=== PATIENT | male | born 2000 | race Hispanic/Latino ===

== ENCOUNTER → 2023-07-26 | Emergency (ER) | payer OTHER ==
[~2023-07-26] MED LIST: AZITHROMYCIN 250 MG TAB ONE; CEFTRIAXONE 1000 MG/VIAL ONE; DOXYCYCLINE 100 MG CAP PO ONE; KETOROLAC 30 MG/ML INJ ONE; NA CHLORIDE 0.9% 500 ML ONE; ONDANSETRON 4 MG/2 ML VIAL ONE
--- NOTE | 2023-07-26 10:23 | RAD REPORT ---
EXAM DESCRIPTION: US - Extremity Nonvascular Limited - 07/26/2023 9:55 am CLINICAL HISTORY: Pain;Swelling COMPARISON: No comparisons FINDINGS: Focused ultrasound of the left inguinal region. An enlarged lymph node is present measurin g 1.3 cm in short axis. This does have a fatty hilum. IMPRESSION: Enlarged lymph node at the patient's left groin. This is probably reactive. Suggest clin ical follow-up.
[2023-07-26 10:25] LABS: Absolute Lymphocytes (CBC) 1.3 K/uL (0.7-4.9); Hematocrit 44.5 % (39.6-49.0); Lymphocytes % 19.9 % (15.3-44.8); MCV 91.2 fL (80-100); MPV 9.5 fL (7.6-11.3); Platelets 168 thou/uL (152-406); RBC Red Blood Cell Count 4.88 M/uL (4.33-5.43)
[2023-07-26 10:44] LABS: Albumin 3.8 g/dL (3.4-5.0); Bilirubin Total 0.2 mg/dL (0.2-1.0); Potassium 3.9 mEq/L (3.5-5.1); Protein, Total 7.7 g/dL (6.4-8.2)
--- NOTE | 2023-07-26 11:14 | ER ---
Nurse's Notes [facility] Name: Toy Long Age: 23 yrs Sex: Male : 2000 Arrival Date: 07/26/2023 Time: 08:41 Bed 17 [facility] MD: Diagnosis: Nonspecific lymphadenitis, unspecified-suggestive of reactive Presentation: 07/26 08:59 Chief complaint: Left groin pain that radiates to abdomen after lifting weights 3 days hb ago. Coronavirus screen: At this time, the client does not indicate any symptoms associated with coronavirus-19. Ebola Screen: No symptoms or risks identified at this time. Initial Sepsis Screen: Does the patient meet any 2 criteria? No. Patient's initial sepsis screen is negative. Does the patient have a suspected source of infection? No. Patient's initial sepsis screen is negative. Risk Assessment: Do you want to hurt yourself or someone else? Patient reports no desire to harm self or others. Onset of symptoms was July 23, 2023. 08:59 Method Of Arrival: Ambulatory hb 08:59 Acuity: SLAVA 4 hb Triage Assessment: 10:00 General: Appears in no apparent distress. Behavior is calm, cooperative, appropriate bp for age. Pain: Complains of pain in left inner thigh and left upper thigh. Historical: - Allergies: 09: No Known Allergies; hb - Home Meds: 09: None [Active]; hb - PMHx: 09: None; hb - PSHx: 09: None; hb - Immunization history:: Adult Immunizations up to date. - Social history:: Smoking status: Patient denies any tobacco usage or history of. - Family history:: not pertinent. Screenin: [facility] ED Fall Risk Assessment (Adult) Score/Fall Risk Level 0 - 2 = Low Risk hb Oriented to surroundings, Maintained a safe environment, Educated pt \T\ family on fall prevention, incl call for assistance when getting out of bed. Abuse screen: Denies threats or abuse. Denies injuries from another. Nutritional screening: No deficits noted. Tuberculosis screening: . Assessment: 09:01 General: Appears in no apparent distress. Behavior is calm, cooperative. Pain: Pain hb currently is 4 out of 10 on a pain scale. Neuro: Level of Consciousness is awake, alert, obeys commands, Oriented to person, place, time, situation. Cardiovascular: Patient's skin is warm and dry. Respiratory: Respiratory effort is even, unlabored, Respiratory pattern is regular, symmetrical. GI: No signs and/or symptoms were reported involving the gastrointestinal system. : No signs and/or symptoms were reported regarding the genitourinary system. EENT: No signs and/or symptoms were reported regarding the EENT system. Derm: Skin is pink, warm \T\ dry. Musculoskeletal: Reports left groin pain. 10:21 Reassessment: Patient appears in no apparent distress at this time. Patient and/or hb family updated on plan of care and expected duration. Pain level reassessed. Patient is alert, oriented x 3, equal unlabored respirations, skin warm/dry/pink. Vital Signs: 08:59 BP 150 / 67; Pulse 77; Resp 16; Temp 98.3; Pulse Ox 100% on R/A; Weight 72.57 kg; hb Height 5 ft. 11 in. ; Pain 4/10; 08:59 Body Mass Index 22.32 (72.57 kg, 180.34 cm) hb 08:59 Pain Scale: Adult hb ED Course: 08:46 Patient arrived in ED. im 08:54 Kenton Sanches MD is Attending Physician. gretchen 09:01 Triage completed. hb 09:01 Arm band placed on. hb 09:01 Patient has correct armband on for positive identification. Provided Education on: . hb 09:01 No provider procedures requiring assistance completed. hb 09:16 Navya Raymond, RN is Primary Nurse. ko1 09:57 US Extrmty Nonvasular Limited In Process Unspecified. EDMS 10:20 Comprehensive Metabolic Panel Sent. hb 10:20 CBC with Diff Sent. hb 10:20 Inserted saline lock: 22 gauge in right forearm, using aseptic technique. Blood hb collected. 11:12 Mook Herman DO is Referral Physician. gretchen 11:39 IV discontinued, intact, bleeding controlled, No redness/swelling at site. Pressure bp dressing applied. Administered Medications: 10:20 Drug: NS 0.9% IV 500 ml IV at bolus once Route: IV; Rate: bolus; Site: right forearm; hb 10:20 Drug: Ketorolac IVP 30 mg IVP once Route: IVP; Site: right forearm; hb 11:39 Follow up: Response: No adverse reaction bp 10:20 Drug: Doxycycline PO 200 mg PO once Route: PO; hb 11:39 Follow up: Response: No adverse reaction bp 10:20 Drug: Rocephin IV 1 grams IV at per protocol once; Given slow IV push per pharmacy hb instructions Route: IV; Rate: per protocol; Site: right forearm; 10:20 Drug: AZITHromycin PO 1 grams PO once Route: PO; hb 11:38 Follow up: Response: No adverse reaction bp 10:20 Drug: Ondansetron IVP 4 mg IVP once; over 2 minutes Route: IVP; Site: right forearm; hb 11:38 Follow up: Response: No adverse reaction bp Medication: 09:01 VIS not applicable for this client. hb Outcome: 11:13 Discharge ordered by . gretchen 11:39 Discharged to home ambulatory, bp 11:39 Condition: stable 11:39 Discharge instructions given to patient, Instructed on discharge instructions, follow up and referral plans. medication usage, Demonstrated understanding of instructions, follow-up care, medications, Prescriptions given X 2, 11:40 Patient left the ED. bp Signatures: Dispatcher [employer] EDMS Kenton Sanches MD MD cha Baxter, Heather, RN RN Jonathon Coelho RN RN bp Navya Raymond, DILIP RN ko1 Judy Rosa Corrections: (The following items were deleted from the chart) 10:21 09:01 Patient did not have IV access during this emergency room visit. hb hb
--- NOTE | 2023-07-26 11:14 | EDPHYS ---
Physician Documentation [facility] Name: Toy Long Age: 23 yrs Sex: Male : 2000 Arrival Date: 07/26/2023 Time: 08:41 Bed 17 Private MD: ED Physician Kenton Sanches HPI: 07/26 09:30 This 23 yrs old Male presents to ER via Ambulatory with complaints of Leg gretchen Swelling - Thigh. 09:30 The patient presents with pain, that is acute. The complaints affect the left upper gretchen thigh. Context: The problem was sustained at an unknown site, resulted from an unknown cause, the patient can fully bear weight, the patient is able to ambulate, without difficulty. Onset: The symptoms/episode began/occurred 1 day(s) ago. Modifying factors: The symptoms are alleviated by nothing. the symptoms are aggravated by movement. Associated signs and symptoms: The patient has no apparent associated signs or symptoms. Severity of symptoms: At their worst the symptoms were mild, in the emergency department the symptoms are unchanged. The patient has not experienced similar symptoms in the past. Historical: - Allergies: 09:01 No Known Allergies; hb - Home Meds: 09: None [Active]; hb - PMHx: 09: None; hb - PSHx: 09:01 None; hb - Immunization history:: Adult Immunizations up to date. - Social history:: Smoking status: Patient denies any tobacco usage or history of. - Family history:: not pertinent. ROS: 09:30 Constitutional: Negative for fever, chills, and weight loss, Eyes: Negative for injury, gretchen pain, redness, and discharge, ENT: Negative for injury, pain, and discharge, Neck: Negative for injury, pain, and swelling, Cardiovascular: Negative for chest pain, palpitations, and edema, Respiratory: Negative for shortness of breath, cough, wheezing, and pleuritic chest pain, Abdomen/GI: Negative for abdominal pain, nausea, vomiting, diarrhea, and constipation, Back: Negative for injury and pain, : Negative for injury, bleeding, discharge, and swelling, Skin: Negative for injury, rash, and discoloration, Neuro: Negative for headache, weakness, numbness, tingling, and seizure, Psych: Negative for depression, anxiety, suicide ideation, homicidal ideation, and hallucinations, Allergy/Immunology: Negative for hives, rash, and allergies, Endocrine: Negative for neck swelling, polydipsia, polyuria, polyphagia, and marked weight changes, Hematologic/Lymphatic: Negative for swollen nodes, abnormal bleeding, and unusual bruising, 09:30 MS/extremity: Positive for pain, swelling, tenderness, of the left inner thigh and left upper thigh, Exam: 09:30 Constitutional: This is a well developed, well nourished patient who is awake, alert, gretchen and in no acute distress. Head/Face: Normocephalic, atraumatic. Eyes: Pupils equal round and reactive to light, extra-ocular motions intact. Lids and lashes normal. Conjunctiva and sclera are non-icteric and not injected. Cornea within normal limits. Periorbital areas with no swelling, redness, or edema. ENT: Nares patent. No nasal discharge, no septal abnormalities noted. Tympanic membranes are normal and external auditory canals are clear. Oropharynx with no redness, swelling, or masses, exudates, or evidence of obstruction, uvula midline. Mucous membranes moist. Neck: Trachea midline, no thyromegaly or masses palpated, and no cervical lymphadenopathy. Supple, full range of motion without nuchal rigidity, or vertebral point tenderness. No Meningismus. Chest/axilla: Normal chest wall appearance and motion. Nontender with no deformity. No lesions are appreciated. Cardiovascular: Regular rate and rhythm with a normal S1 and S2. No gallops, murmurs, or rubs. Normal PMI, no JVD. No pulse deficits. Respiratory: Lungs have equal breath sounds bilaterally, clear to auscultation and percussion. No rales, rhonchi or wheezes noted. No increased work of breathing, no retractions or nasal flaring. Abdomen/GI: Soft, non-tender, with normal bowel sounds. No distension or tympany. No guarding or rebound. No evidence of tenderness throughout. Back: No spinal tenderness. No costovertebral tenderness. Full range of motion. Male : Normal genitalia with no discharge or lesions. Skin: Warm, dry with normal turgor. Normal color with no rashes, no lesions, and no evidence of cellulitis. Neuro: Awake and alert, GCS 15, oriented to person, place, time, and situation. Cranial nerves II-XII grossly intact. Motor strength 5/5 in all extremities. Sensory grossly intact. Cerebellar exam normal. Normal gait. Psych: Awake, alert, with orientation to person, place and time. Behavior, mood, and affect are within normal limits. 09:30 Musculoskeletal/extremity: Extremities: grossly normal except: noted in the left inner thigh and left upper thigh: decreased ROM, pain, ROM: intact in all extremities, full active range of motion, full passive range of motion, Circulation is intact in all extremities. Sensation intact. Compartment Syndrome exam of affected extremity: is normal. Joints: All joints appear normal with full range of motion. Weight bearing: able to fully bear weight, DVT Exam: negative Homans' sign noted on exam, no appreciated bluish discoloration, no erythema, no increased warmth, pain, swelling, tenderness, 09:36 : CVA tenderness, is absent, Male external genitalia: normal, Circumcision noted. gretchen Bladder: is normal, Sexual behavior: not applicable, Vital Signs: 08:59 BP 150 / 67; Pulse 77; Resp 16; Temp 98.3; Pulse Ox 100% on R/A; Weight 72.57 kg; hb Height 5 ft. 11 in. ; Pain 4/10; 08:59 Body Mass Index 22.32 (72.57 kg, 180.34 cm) hb 08:59 Pain Scale: Adult hb MDM: 08:54 Patient medically screened. gretchen 09:33 Differential diagnosis: contusion, tendonitis. Data reviewed: vital signs, nurses [facility] notes, lab test result(s), radiologic studies, doppler. Consideration of Admission/Observation Escalation of care including admission/observation considered. I considered the following discharge prescriptions or medication management in the emergency department Medications were administered in the Emergency Department. See MAR. Independent interpretation of the following test(s) in the Emergency Department Radiology Department Ultrasound: My interpretation is usg. Test considered but Not performed: EKG: no ekg. Historians other than the Patient: Parent: mom well informed. Care significantly affected by the following chronic conditions: none. 07/26 09:23 Order name: CBC with Diff; Complete Time: 10:36 [facility] 07/26 09:23 Order name: Comprehensive Metabolic Panel; Complete Time: 11:12 [facility] 07/26 11:24 Order name: Urinalysis w/ reflexes [facility] 07/26 09:23 Order name: US Extrmty Nonvasular Limited; Complete Time: 10:36 gretchen Administered Medications: 10:20 Drug: NS 0.9% IV 500 ml IV at bolus once Route: IV; Rate: bolus; Site: right forearm; hb 10:20 Drug: Ketorolac IVP 30 mg IVP once Route: IVP; Site: right forearm; hb 11:39 Follow up: Response: No adverse reaction bp 10:20 Drug: Doxycycline PO 200 mg PO once Route: PO; hb 11:39 Follow up: Response: No adverse reaction bp 10:20 Drug: Rocephin IV 1 grams IV at per protocol once; Given slow IV push per pharmacy hb instructions Route: IV; Rate: per protocol; Site: right forearm; 10:20 Drug: AZITHromycin PO 1 grams PO once Route: PO; hb 11:38 Follow up: Response: No adverse reaction bp 10:20 Drug: Ondansetron IVP 4 mg IVP once; over 2 minutes Route: IVP; Site: right forearm; hb 11:38 Follow up: Response: No adverse reaction bp Disposition Summary: 07/26/23 11:13 Discharge Ordered Notes: Location: Home [facility] Problem: new [facility] Symptoms: have improved gretchen Condition: Stable gretchen Diagnosis - Nonspecific lymphadenitis, unspecified - suggestive of reactive gretchen Followup: gretchen - With: Private Physician - When: 2 - 3 days - Reason: Recheck today's complaints, Continuance of care, Re-evaluation by your physician Followup: gretchen - With: Mook Herman DO - When: 2 - 3 days - Reason: Recheck today's complaints, Re-evaluation by your physician Discharge Instructions: - Discharge Summary Sheet [facility] - Lymphadenopathy [facility] Forms: - Medication Reconciliation Form [facility] - Thank You Letter [facility] - Antibiotic Education [facility] - Prescription Opioid Use gretchen - Patient Portal Instructions [facility] - Leadership Thank You Letter [facility] - Work release form eb Prescriptions: - Doxycycline Hyclate 100 mg Oral Tablet - take 1 tablet ORAL route every 12 hours; 20 tablet; Refills: 0, Product [facility] Selection Permitted - Diclofenac Sodium 75 mg Oral tablet, delayed release (enteric coated) - take 1 tablet ORAL route 2 times per day; 20 tablet; Refills: 0, Product [facility] Selection Permitted Signatures: Dispatcher [employer] Kenton Pickering MD MD cha Baxter, Heather, RN RN Jonathon Gr RN bp
[2023-07-26 11:46] VITALS: BP 150/67; TEMP 98.3; O2SAT 100
[2023-07-26 11:52] LABS: Specific Gravity 1.015 (1.005-1.030); Urine Bacteria None Seen /HPF (<20); Urine Bilirubin NEGATIVE (Negative); Urine Blood Negative (Negative); Urine Clarity Clear (Clear); Urine Color Light-Yellow (Yellow); Urine Glucose NEGATIVE (Negative); Urine Mucus Slight /HPF (None Seen); Urine Protein TRACE (Negative); Urine RBC <5 /HPF (None Seen); Urine Urobilinogen Normal (Normal)
== END ==
LOC: ER 08:41
DX: I88.9 Nonspecific lymphadenitis, unspecified (principal)
CPT/HCPCS: 85025; 81001; 36415; 80053; 76882; 96375; 96374; 99284; J2405; J7040; J0696

== ENCOUNTER 2023-11-25 19:35 | Emergency (ER) | payer OTHER, SELFPAY ==
[2023-11-25] MEDS ORDERED: FAMOTIDINE 20 MG TAB ONE (19:47)
[2023-11-25] MEDS ORDERED: predniSONE 20 MG TAB ONE (19:47)
--- NOTE | 2023-11-25 19:47 | EDPHYS ---
Physician Documentation [facility] Name: Toy Long Age: 23 yrs Sex: Male : 2000 Arrival Date: 11/25/2023 Time: 19:35 Bed IW2 Private MD: ED Physician Isaiah Flores HPI: 11/24 19:48 This 23 yrs old Male presents to ER via Ambulatory with complaints of Allergic kb Reaction. 19:48 Pt is a 23 year old male who presents for itchy rash to abdomen that started 3 days kb ago. States it has spread up to chest since onset. Significant other reports she had used a new laundry detergent, but has rewashed everything in the old detergent since the rash started. . Historical: - Allergies: 19:44 No Known Allergies; bm8 - Home Meds: 19:44 None [Active]; bm8 - PMHx: 19:44 None; bm8 - PSHx: 19:44 None; bm8 - Immunization history:: Adult Immunizations up to date. - Infectious Disease History:: Denies. - Social history:: Smoking status: Patient denies any tobacco usage or history of. ROS: 19:47 Constitutional: As per HPI kb Exam: 19:47 Constitutional: This is a well developed, well nourished patient who is awake, alert, kb and in no acute distress. Head/Face: Normocephalic, atraumatic. ENT: Moist Mucous membranes Cardiovascular: Regular rate Respiratory: Respirations even and unlabored. No increased work of breathing. Talking in full sentences Abdomen/GI: Soft, non-tender. No distention MS/ Extremity: Pulses equal, no cyanosis. Neurovascular intact. Full, normal range of motion. Neuro: Awake and alert, GCS 15, oriented to person, place, time, and situation. Moves all extremities. Normal gait. 19:47 Skin: consistent with contact dermatitis, on the chest and abdomen, Vital Signs: 19:42 BP 145 / 74; Pulse 67; Resp 17; Temp 97.6; Pulse Ox 100% on R/A; Pain 5/10; bm8 19:42 Pain Scale: Adult bm8 MDM: 19:45 Patient medically screened. kb 19:48 Differential diagnosis: urticaria, contact dermatitis, scabies. Data reviewed: vital kb signs, nurses notes. Historians other than the Patient: Spouse/Significant Other: significant other. Counseling: I had a detailed discussion with the patient and/or guardian regarding the historical points, exam findings, and any diagnostic results supporting the discharge/admit diagnosis, the need for outpatient follow up, a family practitioner, to return to the emergency department if symptoms worsen or persist or if there are any questions or concerns that arise at home. Administered Medications: 19:51 Drug: predniSONE PO 20 mg PO once Route: PO; bm8 19:52 Follow up: Response: Medication administered at discharge. bm8 19:52 Drug: Famotidine PO 20 mg PO once Route: PO; bm8 19:52 Follow up: Response: Medication administered at discharge. bm8 Disposition Summary: 11/25/23 19:46 Discharge Ordered Notes: Location: Home kb Condition: Stable kb Diagnosis - Unspecified contact dermatitis, unspecified cause kb Followup: kb - With: Emergency Department - When: As needed - Reason: Worsening of condition Followup: kb - With: Private Physician - When: 2 - 3 days - Reason: Recheck today's complaints, Continuance of care, Re-evaluation by your physician Discharge Instructions: - Discharge Summary Sheet kb - Contact Dermatitis kb Forms: - Medication Reconciliation Form kb - Antibiotic Education kb - Prescription Opioid Use kb - Patient Portal Instructions kb - Leadership Thank You Letter kb Prescriptions: - Pepcid 20 mg Oral Tablet - take 1 tablet ORAL route every 12 hours for 5 days; 10 tablet; Refills: 0, kb Product Selection Permitted - Prednisone 20 mg Oral Tablet - take 1 tablet ORAL route once daily for 5 days; 5 tablet; Refills: 0, Product kb Selection Permitted Signatures: Lina Alexander FNP-C FNP-Tod Parra, RN RN bm8
--- NOTE | 2023-11-25 19:47 | ER ---
Nurse's Notes [facility] Name: Toy Long Age: 23 yrs Sex: Male : 2000 Arrival Date: 11/25/2023 Time: 19:35 Bed IW2 Private MD: Diagnosis: Unspecified contact dermatitis, unspecified cause Presentation: 11/24 19:42 Chief complaint: Patient states: reports rash all over for three days. Coronavirus bm8 screen: Vaccine status: At this time, the client does not indicate any symptoms associated with coronavirus-19. Ebola Screen: Patient negative for fever greater than or equal to 101.5 degrees Fahrenheit, and additional compatible Ebola Virus Disease symptoms Patient denies exposure to infectious person. Patient denies travel to an Ebola-affected area in the 21 days before illness onset. No symptoms or risks identified at this time. Onset: The symptoms/episode began/occurred 3 day(s) ago. Anaphylaxis evaluation, no signs or symptoms of anaphylaxis were noted. Initial Sepsis Screen: Does the patient meet any 2 criteria? No. Patient's initial sepsis screen is negative. Does the patient have a suspected source of infection? No. Patient's initial sepsis screen is negative. Risk Assessment: Do you want to hurt yourself or someone else? Patient reports no desire to harm self or others. Onset of symptoms was November 22, 2023. 19:42 Method Of Arrival: Ambulatory bm8 19:42 Acuity: SLAVA 5 bm8 Triage Assessment: 19:44 General: Appears in no apparent distress. comfortable, Behavior is calm, cooperative, bm8 appropriate for age. Pain: Complains of pain in trunk and neck. EENT: No deficits noted. No signs and/or symptoms were reported regarding the EENT system. Neuro: No deficits noted. Level of Consciousness is awake, alert, obeys commands, Oriented to person, place, time, situation. Cardiovascular: Capillary refill < 3 seconds Patient's skin is warm and dry. Respiratory: Airway is patent Trachea midline Respiratory effort is even, unlabored, Respiratory pattern is regular, symmetrical. GI: No deficits noted. : No deficits noted. Derm: Rash noted that is macular, raised. Historical: - Allergies: 19:44 No Known Allergies; bm8 - Home Meds: 19:44 None [Active]; bm8 - PMHx: 19:44 None; bm8 - PSHx: 19:44 None; bm8 - Immunization history:: Adult Immunizations up to date. - Infectious Disease History:: Denies. - Social history:: Smoking status: Patient denies any tobacco usage or history of. Screenin:46 [facility] ED Fall Risk Assessment (Adult) History of falling in the last 3 months, bm8 including since admission No falls in past 3 months (0 pts) Confusion or Disorientation No (0 pts) Intoxicated or Sedated No (0 pts) Impaired Gait No (0 pts) Mobility Assist Device Used No (0 pt) Altered Elimination No (0 pt) Score/Fall Risk Level 0 - 2 = Low Risk Oriented to surroundings, Maintained a safe environment, Educated pt \T\ family on fall prevention, incl call for assistance when getting out of bed, Assessed \T\ reinforced patient's understanding of fall precautions. Abuse screen: Denies threats or abuse. Nutritional screening: No deficits noted. Tuberculosis screening: No symptoms or risk factors identified. Assessment: 19:46 Reassessment: Patient appears in no apparent distress at this time. see triage note. bm8 Respiratory: Airway is patent Trachea midline Respiratory effort is even, unlabored, Respiratory pattern is regular, symmetrical, Breath sounds are clear bilaterally. Vital Signs: 19:42 BP 145 / 74; Pulse 67; Resp 17; Temp 97.6; Pulse Ox 100% on R/A; Pain 5/10; bm8 19:42 Pain Scale: Adult bm8 ED Course: 19:39 Patient arrived in ED. gm2 19:42 Tod Small, DILIP is Primary Nurse. bm8 19:44 Triage completed. bm8 19:44 Lina Alexander FNP-C is PHCP. kb 19:44 Isaiah Flores MD is Attending Physician. kb 19:44 Arm band placed on right wrist. bm8 19:46 Patient has correct armband on for positive identification. Provided Education on: post bm8 er care. 19:46 No provider procedures requiring assistance completed. Patient did not have IV access bm8 during this emergency room visit. Administered Medications: 19:51 Drug: predniSONE PO 20 mg PO once Route: PO; bm8 19:52 Follow up: Response: Medication administered at discharge. bm8 19:52 Drug: Famotidine PO 20 mg PO once Route: PO; bm8 19:52 Follow up: Response: Medication administered at discharge. bm8 Medication: 19:46 VIS not applicable for this client. bm8 Outcome: 19:46 Discharge ordered by . ady 19:52 Discharged to home ambulatory, bm8 19:52 Condition: stable 19:52 Discharge instructions given to patient, family, Instructed on discharge instructions, follow up and referral plans. no drinking with medication, no driving heavy equipment, medication usage, safety practices, Demonstrated understanding of instructions, follow-up care, medications, Prescriptions given X 2, 19:52 Patient left the ED. bm8 Signatures: Lina Alexander, ANTIQUE DEALER-C NEGRO-Lila Rodriges gm2 Tod Small, RN RN bm8
[2023-11-25] MEDS ORDERED: INSULIN REGULAR (HUMAN) 100 UNIT/ML ONE (22:41)
[2023-11-25] MEDS ORDERED: NA CHLORIDE 0.9% 1,000 ML ONE (22:43)
== END 2023-11-25 19:52 | disposition home or self-care (01) ==
LOC: ER 19:35
DX: L25.9 Unspecified contact dermatitis, unspecified cause (principal)
CPT/HCPCS: J7030; J7512